=== PATIENT | male | born 1950 | race Caucasian/White ===

== ENCOUNTER → 2017-09-22 | Outpatient (CLI) | payer MEDICARE, OTHER ==
[~2017-09-22] MED LIST: DOXA4 PO; FEXPSEER PO
== END ==
LOC: PLD 13:27 → LAB SHORT 13:27
DX: D48.5 Neoplasm of uncertain behavior of skin (principal)
CPT/HCPCS: 88305

== ENCOUNTER 2019-11-15 12:37 | Inpatient (IN) | payer MEDICARE, OTHER ==
[~2019-11-15] VITALS: Ht 172.7 cm; Wt 72.3 kg
[2019-11-15] MEDS ORDERED: DOXA4 PO (12:52)
[2019-11-15] MEDS ORDERED: Aspirin EC81 MG PO (12:52)
[2019-11-15] MEDS ORDERED: Flovent Diskus50 MCG INH (12:53)
[2019-11-15] MEDS ORDERED: INCRUSE ELLI62.5 MCG INH (12:53)
[2019-11-15] MEDS ORDERED: LISI20 PO (12:54)
[2019-11-15] MEDS ORDERED: Duoneb 2.5-0.5 M3 ML NEB (12:54)
[2019-11-15] MEDS ORDERED: OMEP20ER PO (12:55)
[2019-11-15] MEDS ORDERED: PARO20 PO (12:55)
[2019-11-15 13:03] LABS: BASOPHILS ABSOLUTE AUTO 0.02 K/mm3 (0.00-0.23); BASOPHILS PERCENT AUTO 0 % (0-2); EOSINOPHILS ABSOLUTE AUTO 0.02 K/mm3 (0.00-0.68); EOSINOPHILS PERCENT AUTO 0 % (0-6); Hematocrit 36.7 % (37.0-53.0); Hemoglobin 13.3 g/dL (13.5-17.5); IMMATURE GRAN ABSOLUTE AUTO 0.04 K/mm3 (0.00-0.10); IMMATURE GRAN PERCENT AUTO 1 % (0-1); LYMPHOCYTES ABSOLUTE AUTO 1.05 K/mm3 (0.84-5.20); LYMPHOCYTES PERCENT AUTO 14 % (21-46); MONOCYTES ABSOLUTE AUTO 0.74 K/mm3 (0.16-1.47); MONOCYTES PERCENT AUTO 10 % (4-13); Mean Corpuscular HGB 36.3 pg (26.0-34.0); Mean Corpuscular HGB Conc 36.2 g/dL (31.5-36.5); Mean Corpuscular Volume 100 fL (80-100); Mean Platelet Volume 10.9 fL (9.1-12.4); NEUTROPHILS ABSOLUTE AUTO 5.52 K/mm3 (1.96-9.15); NEUTROPHILS PERCENT AUTO 75 % (41-73); Platelet Count 140 K/mm3 (150-400); RDW Coefficient Variation 13.7 % (11.7-14.2); RDW Standard Deviation 51.2 fL (35.1-46.3); Red Blood Cell Count 3.66 M/mm3 (4.30-5.90); White Blood Cell Count 7.39 K/mm3 (4.00-11.30)
[2019-11-15 13:20] LABS: Alanine Aminotransfer (ALT/SGP 26 U/L (12-78); Albumin, Blood 2.7 g/dL (3.4-5.0); Albumin/Globulin Ratio 0.7 (0.8-1.8); Alk Phos 58 U/L (50-136); Anion Gap 13 mmol/L (6-16); Aspartate Aminotrans (AST/SGOT 42 U/L (12-37); Bilirubin, Total 2.4 mg/dL (0.1-1.0); Blood Urea Nitrogen 21 mg/dL (8-24); Bun/Creatinine Ratio 24.8 (12.0-20.0); CO2, Blood 26 mmol/L (21-32); Chloride, Blood 86 mmol/L (98-108); Creatinine, Blood 0.85 mg/dL (0.60-1.20); Globulin, Blood 3.7 g/dL (2.2-4.0); Glomerular Filtration Rate >60 (60-); Glucose, Blood 95 mg/dL (70-99); Potassium, Blood 2.9 mmol/L (3.5-5.5); Sodium, Blood 125 mmol/L (136-145); Total Protein, Blood 6.4 g/dL (6.4-8.2); Troponin I <0.015 ng/mL (0.000-0.040)
[2019-11-15] MEDS ORDERED: HYDROCHLOROTH12.5 MG PO (15:19)
[2019-11-15] MEDS ORDERED: Doxazosin Mesyla4 MG PO (15:20)
--- NOTE | 2019-11-15 16:22 | NUR ---
Echocardiogram completed.
[2019-11-15 16:39] LABS: International Normalized Ratio 1.04; Prothrombin Time Results 11.1 Sec (9.7-11.5)
--- NOTE | 2019-11-15 17:37 | NUR ---
DR VELAZQUEZ CALLED RE NEW ADMIT. PT STATES HE NEEDS HIS COPD MEDS. PT IS ON CARDIZEM GTT AT 2.5 AND VS NOTED. PT DENIES PAIN OR SOB CURRENTLY. LUNGS ARE QUITE DIMINISHED TO BUT IS ON RA WITH SATS NOTED. PT INDICATES DAILY ETOH USE W/O EVIDENCE OF DIFFICULTY BREATHNING. PT HR APPROX 95-130 ON EARLY ADMIT WITH CARDIZEM GTT AT 2.5MG AND WILL FOLLOW.
--- NOTE | 2019-11-15 19:00 | NUR ---
ASSUMED CARE NOTE: ASSUMED CARE OF PT @ 1900, RECEVIED REPORT FROM RUI MOREL. PT IS ALERT AND ORIENTEDX3. PT IS ON RA WITH SPO2 ABOVE 90% PT IS DIM T/O. PT DENIES ANY SOB AT THIS TIME. PT IS IN A FIB WITH HR BETWEEN 90-120. VITALS STABLE. PT DENIES ANY CP AT THIS TIME. PT IS ON CARDIZEM @ 2.5MG/HR. ACTIVE BOWEL TONES IN ALL FOUR QUADRANTS. PT USES URINAL AT BEDSIDE, WILL CONTINUE TO MONITOR PT T/O SHIFT
--- NOTE | 2019-11-15 19:41 | NUR ---
CALLED TO ENSURE THAT CARDIZEM WAS TURNED OFF. CARDIZEM IS NOW DISCONTINUED. DR. MEZA CALLED AND STATED TO CALL FOR CARDIO CONSULT IN THE AM.
[2019-11-16 03:27] LABS: BASOPHILS ABSOLUTE AUTO 0.01 K/mm3 (0.00-0.23); BASOPHILS PERCENT AUTO 0 % (0-2); EOSINOPHILS ABSOLUTE AUTO 0.01 K/mm3 (0.00-0.68); EOSINOPHILS PERCENT AUTO 0 % (0-6); Hematocrit 31.4 % (37.0-53.0); Hemoglobin 11.6 g/dL (13.5-17.5); IMMATURE GRAN ABSOLUTE AUTO 0.03 K/mm3 (0.00-0.10); IMMATURE GRAN PERCENT AUTO 1 % (0-1); LYMPHOCYTES ABSOLUTE AUTO 0.41 K/mm3 (0.84-5.20); LYMPHOCYTES PERCENT AUTO 7 % (21-46); MONOCYTES ABSOLUTE AUTO 0.57 K/mm3 (0.16-1.47); MONOCYTES PERCENT AUTO 9 % (4-13); Mean Corpuscular HGB 36.7 pg (26.0-34.0); Mean Corpuscular HGB Conc 36.9 g/dL (31.5-36.5); Mean Corpuscular Volume 99 fL (80-100); Mean Platelet Volume 10.5 fL (9.1-12.4); NEUTROPHILS ABSOLUTE AUTO 5.23 K/mm3 (1.96-9.15); NEUTROPHILS PERCENT AUTO 84 % (41-73); Platelet Count 122 K/mm3 (150-400); RDW Coefficient Variation 13.8 % (11.7-14.2); RDW Standard Deviation 50.8 fL (35.1-46.3); Red Blood Cell Count 3.16 M/mm3 (4.30-5.90); White Blood Cell Count 6.26 K/mm3 (4.00-11.30)
[2019-11-16 03:46] LABS: Alanine Aminotransfer (ALT/SGP 22 U/L (12-78); Albumin, Blood 2.2 g/dL (3.4-5.0); Albumin/Globulin Ratio 0.7 (0.8-1.8); Alk Phos 54 U/L (50-136); Anion Gap 11 mmol/L (6-16); Aspartate Aminotrans (AST/SGOT 45 U/L (12-37); Bilirubin, Total 1.9 mg/dL (0.1-1.0); Blood Urea Nitrogen 17 mg/dL (8-24); Bun/Creatinine Ratio 23.7 (12.0-20.0); CHOL/HDL RATIO 9.5; CO2, Blood 23 mmol/L (21-32); Calcium, Blood 7.8 mg/dL (8.5-10.1); Chloride, Blood 95 mmol/L (98-108); Cholesterol 95 mg/dL (50-200); Creatinine, Blood 0.72 mg/dL (0.60-1.20); Glomerular Filtration Rate >60 (60-); Glucose, Blood 93 mg/dL (70-99); HDL Cholesterol 10 mg/dL (>39); LDL/HDL RATIO 5.7; Low Density Lipoprotein Chol 57 mg/dL (0-110); Potassium, Blood 3.6 mmol/L (3.5-5.5); Sodium, Blood 129 mmol/L (136-145); Total Protein, Blood 5.2 g/dL (6.4-8.2); Triglycerides 138 mg/dL (30-160); Very Low Density Lipoprot Chol 27 mg/dL (6-32)
--- NOTE | 2019-11-16 06:46 | NUR ---
SHIFT SUMMARY: SEE PREVIOUS NOTE. NO MAJOR CHANGES DURING SHIFT. CARDIZEM DRIP HAS REMAINED OFF ORDERED PER . PT IS ON RA WITH SPO2 ABOVE 90%. PT HAS SLEPT FOR THE MAJORITY OF THE SHIFT. PT IS IN AFIB WITH HR BETWEEN 80-100. MARTHA STOP BY THIS MORNING TO ASSESS PT, NO CHANGES WERE MADE. PT HAS BEEN USING URINAL AT BEDSIDE. BE AT LOWEST LEVEL, MOISES CONTINUE TO MONITOR PT UNTIL REPORT IS GIVEN TO ONCOMING SHIFT.
--- NOTE | 2019-11-16 08:06 | NUR ---
PT AWAKE AND CALM. VS NOTED AND SL SOFT, WILL FOLLOW FOR AM MEDS ADMINISTRATION. IVF NS TKO. URINE DARK AND ENCOURAGED PO INTAKE. REMAINS A-FIB. DENIES PAIN OR AM DISTRES. SETTING UP EATING.
--- NOTE | 2019-11-16 15:57 | NUR ---
PT CONT. TO HAVE INTERMITENT AGITATION/RESTLESSNESS. REMAINS ON PRECEDEX GTT AND ATIVAN X2 THUS FAR THIS SHIFT. PT IS YET RESTRAINED AND TOLERATING WELL.
--- NOTE | 2019-11-16 16:03 | NUR ---
PT HAS BEEN SLEEPING MOST OF SHIFT. BP HAVE BEEN SOFT BUT READINGS ARE LOWER WHEN PT HAS R ARM BENT AND SLEEPING. DENIES PAIN OR DISTRESS.
--- NOTE | 2019-11-16 18:20 | NUR ---
PT STABLE, VS NOTED, I/O NOTED. NO CHANGE IN PAIN, RESP STATUS AND PT REMAINS IN A-FIB WITH RATE SOMEWHAT CONTROLLED NOTED.
--- NOTE | 2019-11-16 20:30 | NUR ---
PATIENT AWAKE, LAYING IN BED. SELF CARE TO OWN NEEDS. DENIES NO CHEST PAIN, SOB. HR IRREGULAR 100'S, A-FIB. BP STABLE. 02 2L/NC IN PLACE WITH SATS >90%. OCCASIONAL PRODUCTIVE COUGH WITH CLEAR SPUTUM PER PATIENT. MODERATE APPETITE NOTED FOR DINNER. TAKES PO INTAKE WELL. PO MED GIVEN WITHOUT ANY DIFFICULTY. MOVES ALL EXT'S WELL. X2 SALINE LOCKS PATENT. CONTINUE TO MONITOR AND TX PRN.
[2019-11-17 04:05] LABS: Alanine Aminotransfer (ALT/SGP 27 U/L (12-78); Albumin, Blood 2.1 g/dL (3.4-5.0); Albumin/Globulin Ratio 0.6 (0.8-1.8); Alk Phos 60 U/L (50-136); Anion Gap 8 mmol/L (6-16); Aspartate Aminotrans (AST/SGOT 75 U/L (12-37); Bilirubin, Total 1.7 mg/dL (0.1-1.0); Blood Urea Nitrogen 9 mg/dL (8-24); Bun/Creatinine Ratio 13.7 (12.0-20.0); CO2, Blood 25 mmol/L (21-32); Calcium, Blood 7.7 mg/dL (8.5-10.1); Chloride, Blood 97 mmol/L (98-108); Creatinine, Blood 0.66 mg/dL (0.60-1.20); Globulin, Blood 3.3 g/dL (2.2-4.0); Glomerular Filtration Rate >60 (60-); Glucose, Blood 99 mg/dL (70-99); Potassium, Blood 3.1 mmol/L (3.5-5.5); Sodium, Blood 130 mmol/L (136-145); Total Protein, Blood 5.4 g/dL (6.4-8.2)
--- NOTE | 2019-11-17 05:24 | NUR ---
SHIFT SUMMARY PT REMAINED STABLE T/O SHIFT. DENIED ANY CP OR SOB. RHYTHM A-FIB WITH HR 90-100'S. O2 2L/NC IN PLACE DUE TO HX SLEEP APNEA, SATS >90%. LUNGS CLEAR WITH OCCASIONAL PRODUCTIVE CLEAR SPUTUM PER PATIENT. USES URINAL AT BEDSIDE, DANIEL COLOR URINE. RASH TO BUTTOCK GONE, BUT LOTRIMIN CREAM APPLIED BY PATIENT. INDEPENDENT OF SELF CARE NEEDS. NO OTHER CHANGES NOTED, WILL REPORT OFF TO NOC SHIFT.
--- NOTE | 2019-11-17 08:00 | NUR ---
[place] of Care: Care assumed at 0700hr. Patient a/o x4, sitting upright in bed watching T.V. Denies pain, discomfort, SOB, or dyspnea. VSS, spO2-95-97% on RA. Heart rate/rhythm shows A-fibb- 110-120's, BP stable. Patient dangles at bedside to use urinal without difficulty. Tolerated PO fluids, breakfast, and pills whole without difficulty. Peripheral IV to lt wrist patent and intact. Plan to discuss PO potassium replacement and possible status change with physician this morning. Call light in reach, makes, needs known. Will continue to monitor for pain, safety, comfort.
--- NOTE | 2019-11-17 18:28 | NUR ---
Shift Summary: No significant changes throughout shift. VS remains stable, heart rate/rhythm remains in A-fibb, rate decreased to 90's-low 100's, occasionally increased to 120. Continues to deny pain, discomfort, SOB, or dyspnea. Calm and cooperative with staff, but needed reminders to not get out of bed without assistance. Steady on his feet when out of bed. Ate approx 50% of meals today, tolerated without difficulty. Received orders per Dr. Phillips this morning for K-Dur, PO BID, and to change patient to medical status with telemetry. Call light in reach, makes needs known. Will continue to monitor until report to day shift RN.
--- NOTE | 2019-11-17 20:45 | NUR ---
PATIENT RESTING IN BED. A&OX4. DENIES CHEST PAIN OR SOB. CONTROLLED HR 100'S, A-FIB. LUNGS CLEAR DECREASE BASES, ROOM AIR. OCCASIONAL PRODUCTIVE COUGH PER PATIENT, CLEAR SPUTUM. TAKES PO MEDS WELL. USES URINAL AT BEDSIDE. MOVES ALL EXT'S WELL. SELF CARE TO HIS OWN NEEDS. CALL LIGHT IN REACH. CONTINUE TO MONITOR AND TX PRN.
--- NOTE | 2019-11-18 04:18 | NUR ---
INCREASE RESTLESSNESS T/O SHIFT. UP TO TOILET AND ATTEMPTED TO WALK OUT OF ROOM AT TIMES ASKING ABOUT WANTING TO GO HOME. RE-DIRECTS WELL, BUT SOME CONFUSION NOTED. ATIVAN 1MG IVP GIVEN FOR ANXIETY. CONTINUE TO MONITOR. VSS.
--- NOTE | 2019-11-18 05:16 | NUR ---
SHIFT SUMMARY START OF SHIFT A&OX4, BUT NIGHT WENT ON INCREASE BECAME CONFUSED AND AXIOUS NOTED; REDIRECTS WELL. ATIVAN 1MG IVP GIVEN. RESTLESSNESS IN BED AND SKIN TEARS TO BOTH ELBOW AREAS. LEFT ELBOW PLACED BANDAID AND RIGHT ELBOW CLEANSE WITH TAP WATER AND PLACE MEPLIEX DRESSING. BED ALARM TURNED ON AND EDUCATED PT THE REASON FOR IT. BED LIGHT IN REACH. HAVE NOTED SOME UNSTEADINESS ON FEET. VSS T/O. WAS USING TOILET ON OWN BUT HAVE EDUCATED TO USE URINAL AT BEDSIDE. NO OTHER CHANGES NOTED. WILL REPORT OFF TO DAY SHIFT.
[2019-11-18 11:14] LABS: Anion Gap 6 mmol/L (6-16); Blood Urea Nitrogen 6 mg/dL (8-24); Bun/Creatinine Ratio 9.9 (12.0-20.0); CO2, Blood 22 mmol/L (21-32); Calcium, Blood 8.2 mg/dL (8.5-10.1); Chloride, Blood 99 mmol/L (98-108); Creatinine, Blood 0.61 mg/dL (0.60-1.20); Glomerular Filtration Rate >60 (60-); Glucose, Blood 101 mg/dL (70-99); Potassium, Blood 3.7 mmol/L (3.5-5.5); Sodium, Blood 127 mmol/L (136-145)
[2019-11-18] MEDS ORDERED: FOLI1 PO (13:56)
[2019-11-18] MEDS ORDERED: LOSA25 PO (13:57)
[2019-11-18] MEDS ORDERED: METO25ER PO (13:58)
[2019-11-18] MEDS ORDERED: XARELTO20 MG PO (13:59)
[2019-11-18] MEDS ORDERED: B-1100 M1 PO (14:00)
--- NOTE | 2019-11-18 14:49 | NUR ---
Discharge: received discharge orders/instructions from Dr. Phillips at approx 1300hr. Medications and instructions reviewed with patient, who verablized understanding. Discharge medications called to [facility]. Peripheral IV D/C'd. Belongings sent with patient. Patient disharged to home via his friend, who gave him a ride home at 1440hr. Belongings sent home with patient.
== END 2019-11-18 14:40 | disposition home or self-care (01) | DRG 193 ==
LOC: ER 12:37 → ICUW 12:38 → ER 12:42 → ICUE 16:16
PROVIDERS: Emergency Medicine; ADMIT Internal Medicine
PROC: 8E0ZXY6 Isolation (ICD-10-PCS; principal; 2019-11-15)
DX: J18.9 Pneumonia, unspecified organism (principal); I50.41 Acute combined systolic (congestive) and diastolic (congestive) heart failure; E87.1 Hypo-osmolality and hyponatremia; J44.0 Chronic obstructive pulmonary disease with (acute) lower respiratory infection; E87.2 Acidosis; I42.8 Other cardiomyopathies; I48.91 Unspecified atrial fibrillation; I11.0 Hypertensive heart disease with heart failure; E87.6 Hypokalemia; G47.33 Obstructive sleep apnea (adult) (pediatric); K21.9 Gastro-esophageal reflux disease without esophagitis; F10.20 Alcohol dependence, uncomplicated; F41.9 Anxiety disorder, unspecified; F17.200 Nicotine dependence, unspecified, uncomplicated; Z91.14 Patient's other noncompliance with medication regimen; Z79.82 Long term (current) use of aspirin; Z79.51 Long term (current) use of inhaled steroids
CPT/HCPCS: 36415; 71045; 80048; 80053; 80061; 82728; 83605; 83615; 83880; 84145; 84484; 85025; 85610; 85730; 86140; 87040; 93005; 93010; 93306; 94640; 94760; 96361; 96365-59; 96367; 96376; 97165; 99285-25; A9270-GY; J0696; J1650; J2060; J3480; J7030; U0002

== ENCOUNTER 2020-01-20 11:43 | Emergency (ER) | payer MEDICARE, OTHER ==
[~2020-01-20] VITALS: Ht 172.7 cm; Wt 70.3 kg
[~2020-01-20 11:43] MED LIST changes: +Aspirin EC81 MG PO; +B-1100 M1 PO; +Doxazosin Mesyla4 MG PO; +Duoneb 2.5-0.5 M3 ML NEB; +FOLI1 PO; +Flovent Diskus50 MCG INH; +HYDROCHLOROTH12.5 MG PO; +INCRUSE ELLI62.5 MCG INH; +LISI20 PO; +LOSA25 PO; +METO25ER PO; +OMEP20ER PO; +PARO20 PO; +XARELTO20 MG PO
[2020-01-20 12:13] LABS: BASOPHILS PERCENT AUTO 0 % (0-2); EOSINOPHILS PERCENT AUTO 0 % (0-6); Hematocrit 29.4 % (37.0-53.0); Hemoglobin 10.1 g/dL (13.5-17.5); IMMATURE GRAN ABSOLUTE AUTO 0.02 K/mm3 (0.00-0.10); IMMATURE GRAN PERCENT AUTO 1 % (0-1); LYMPHOCYTES ABSOLUTE AUTO 0.36 K/mm3 (0.84-5.20); LYMPHOCYTES PERCENT AUTO 8 % (21-46); MONOCYTES ABSOLUTE AUTO 0.08 K/mm3 (0.16-1.47); MONOCYTES PERCENT AUTO 2 % (4-13); Mean Corpuscular HGB 36.7 pg (26.0-34.0); Mean Corpuscular HGB Conc 34.4 g/dL (31.5-36.5); Mean Corpuscular Volume 107 fL (80-100); Mean Platelet Volume 9.8 fL (9.1-12.4); NEUTROPHILS ABSOLUTE AUTO 3.82 K/mm3 (1.96-9.15); NEUTROPHILS PERCENT AUTO 89 % (41-73); Platelet Count 193 K/mm3 (150-400); RDW Coefficient Variation 13.6 % (11.7-14.2); RDW Standard Deviation 53.5 fL (35.1-46.3); Red Blood Cell Count 2.75 M/mm3 (4.30-5.90); White Blood Cell Count 4.28 K/mm3 (4.00-11.30)
[2020-01-20 12:20] LABS: International Normalized Ratio 1.02; Prothrombin Time Results 10.9 Sec (9.7-11.5)
[2020-01-20 12:29] LABS: Anion Gap 19 mmol/L (6-16); Blood Urea Nitrogen 14 mg/dL (8-24); Bun/Creatinine Ratio 15.9 (12.0-20.0); CO2, Blood 19 mmol/L (21-32); Calcium, Blood 8.6 mg/dL (8.5-10.1); Chloride, Blood 86 mmol/L (98-108); Creatinine, Blood 0.88 mg/dL (0.60-1.20); Glomerular Filtration Rate >60 (60-); Glucose, Blood 86 mg/dL (70-99); Potassium, Blood 3.6 mmol/L (3.5-5.5); Sodium, Blood 124 mmol/L (136-145)
[2020-01-20 13:38] LABS: Magnesium, Blood 1.2 mg/dL (1.6-2.4)
[2020-01-20] MEDS ORDERED: ONDA4ODT MM (16:16)
[2020-01-20] MEDS ORDERED: Norco 5-325 Ta1 EACH PO (16:16)
[2020-01-20] MEDS ORDERED: MAGOXI400 PO (16:19)
== END 2020-01-20 16:47 | disposition home or self-care (01) ==
LOC: ER 11:43
PROVIDERS: Emergency Medicine
DX: S42.032A Displaced fracture of lateral end of left clavicle, initial encounter for closed fracture (principal); S51.012A Laceration without foreign body of left elbow, initial encounter; S01.112A Laceration without foreign body of left eyelid and periocular area, initial encounter; I48.91 Unspecified atrial fibrillation; E87.1 Hypo-osmolality and hyponatremia; E83.42 Hypomagnesemia; E87.8 Other disorders of electrolyte and fluid balance, not elsewhere classified; Z88.5 Allergy status to narcotic agent; Z79.899 Other long term (current) drug therapy; Z79.82 Long term (current) use of aspirin; G47.30 Sleep apnea, unspecified; Z99.89 Dependence on other enabling machines and devices; I11.0 Hypertensive heart disease with heart failure; I50.9 Heart failure, unspecified; K21.9 Gastro-esophageal reflux disease without esophagitis; J44.9 Chronic obstructive pulmonary disease, unspecified; F41.9 Anxiety disorder, unspecified; F17.210 Nicotine dependence, cigarettes, uncomplicated; F10.20 Alcohol dependence, uncomplicated; W19.XXXA Unspecified fall, initial encounter
CPT/HCPCS: 29105; 36415; 70450; 72125; 73030; 80048; 82010; 83605; 83735; 84145; 85025; 85610; 90471; 90714; 93005; 93010; 96361-59; 96365-59; 96375-59; 96376-59; 99284-25; A9270-GY; G0480; J1885; J2405; J3010; J3475; J7030

== ENCOUNTER 2020-04-10 10:28 | Inpatient (IN) | payer MEDICARE, OTHER ==
[~2020-04-10] VITALS: Ht 172.7 cm; Wt 66.2 kg
[~2020-04-10 10:28] MED LIST changes: +MAGOXI400 PO; +Norco 5-325 Ta1 EACH PO; +ONDA4ODT MM
[2020-04-10 10:59] LABS: BASOPHILS ABSOLUTE AUTO 0.01 K/mm3 (0.00-0.23); BASOPHILS PERCENT AUTO 0 % (0-2); EOSINOPHILS PERCENT AUTO 0 % (0-6); Hematocrit 24.8 % (37.0-53.0); Hemoglobin 8.4 g/dL (13.5-17.5); IMMATURE GRAN ABSOLUTE AUTO 0.02 K/mm3 (0.00-0.10); IMMATURE GRAN PERCENT AUTO 0 % (0-1); LYMPHOCYTES PERCENT AUTO 10 % (21-46); MONOCYTES ABSOLUTE AUTO 0.73 K/mm3 (0.16-1.47); MONOCYTES PERCENT AUTO 9 % (4-13); Mean Corpuscular HGB 36.4 pg (26.0-34.0); Mean Corpuscular HGB Conc 33.9 g/dL (31.5-36.5); Mean Corpuscular Volume 107 fL (80-100); Mean Platelet Volume 10.7 fL (9.1-12.4); NEUTROPHILS ABSOLUTE AUTO 6.43 K/mm3 (1.96-9.15); NEUTROPHILS PERCENT AUTO 81 % (41-73); Platelet Count 206 K/mm3 (150-400); RDW Coefficient Variation 15.2 % (11.7-14.2); RDW Standard Deviation 60.3 fL (35.1-46.3); Red Blood Cell Count 2.31 M/mm3 (4.30-5.90); White Blood Cell Count 7.99 K/mm3 (4.00-11.30)
[2020-04-10 11:18] LABS: Alanine Aminotransfer (ALT/SGP 41 U/L (12-78); Albumin, Blood 2.7 g/dL (3.4-5.0); Alk Phos 62 U/L (50-136); Anion Gap 21 mmol/L (6-16); Aspartate Aminotrans (AST/SGOT 123 U/L (12-37); Bilirubin, Total 1.4 mg/dL (0.1-1.0); Blood Urea Nitrogen 13 mg/dL (8-24); Bun/Creatinine Ratio 13.7 (12.0-20.0); CO2, Blood 14 mmol/L (21-32); Calcium, Blood 7.9 mg/dL (8.5-10.1); Chloride, Blood 93 mmol/L (98-108); Creatinine, Blood 0.95 mg/dL (0.60-1.20); Ethanol (Alcohol), Blood, Med <3 mg/dL; Globulin, Blood 2.8 g/dL (2.2-4.0); Glomerular Filtration Rate >60 (60-); Glucose, Blood 149 mg/dL (70-99); Potassium, Blood 3.1 mmol/L (3.5-5.5); Sodium, Blood 128 mmol/L (136-145); Total Protein, Blood 5.5 g/dL (6.4-8.2); Troponin I <0.015 ng/mL (0.000-0.040)
[2020-04-10 11:50] LABS: Magnesium, Blood 1.6 mg/dL (1.6-2.4); Phosphorus, Blood 5.2 mg/dL (2.5-4.9)
[2020-04-10 12:10] LABS: Base Excess Venous -11.9 mmol/L; Bicarbonate Venous 15.3 mmol/L (24.0-30.0); PCO2 Venous 33.9 mmHg (38-42); PO2 Venous 41.1 mmHg (38-42); pH Blood Venous 7.26 (7.34-7.37)
[2020-04-10 16:23] LABS: BASOPHILS ABSOLUTE AUTO 0.01 K/mm3 (0.00-0.23); BASOPHILS PERCENT AUTO 0 % (0-2); EOSINOPHILS PERCENT AUTO 0 % (0-6); Hematocrit 21.2 % (37.0-53.0); Hemoglobin 7.3 g/dL (13.5-17.5); Mean Corpuscular HGB 35.8 pg (26.0-34.0); Mean Corpuscular HGB Conc 34.4 g/dL (31.5-36.5); Mean Corpuscular Volume 104 fL (80-100); Mean Platelet Volume 10.8 fL (9.1-12.4); Platelet Count 122 K/mm3 (150-400); RDW Coefficient Variation 15.1 % (11.7-14.2); RDW Standard Deviation 57.1 fL (35.1-46.3); Red Blood Cell Count 2.04 M/mm3 (4.30-5.90); White Blood Cell Count 3.72 K/mm3 (4.00-11.30)
[2020-04-10 16:31] LABS: IMMATURE GRAN ABSOLUTE AUTO 0.02 K/mm3 (0.00-0.10); IMMATURE GRAN PERCENT AUTO 1 % (0-1); LYMPHOCYTES ABSOLUTE AUTO 0.18 K/mm3 (0.84-5.20); LYMPHOCYTES PERCENT AUTO 5 % (21-46); MONOCYTES ABSOLUTE AUTO 0.43 K/mm3 (0.16-1.47); MONOCYTES PERCENT AUTO 12 % (4-13); NEUTROPHILS ABSOLUTE AUTO 3.08 K/mm3 (1.96-9.15); NEUTROPHILS PERCENT AUTO 83 % (41-73)
--- NOTE | 2020-04-10 18:25 | NUR ---
SHIFT SUMMARY NO ACUTE CHANGES SINCE ADMIT. PATIENT IS ALERT AND ORIENTED ABLE TO MAKE HIS NEEDS KNOWN. BED LOW AND LOCKED, CALL LIGHT WITHIN REACH. HE IS ON BEDREST AND CLEAR LIQUID DIET. WILL CONT TO MONITOR AND REPORT OFF TO OUTSOLE BEVELER.
[2020-04-10 20:34] LABS: Hematocrit 19.3 % (37.0-53.0); Hemoglobin 6.9 g/dL (13.5-17.5)
[2020-04-11 02:28] LABS: Alanine Aminotransfer (ALT/SGP 23 U/L (12-78); Albumin, Blood 2.1 g/dL (3.4-5.0); Albumin/Globulin Ratio 0.8 (0.8-1.8); Alk Phos 47 U/L (50-136); Anion Gap 8 mmol/L (6-16); Aspartate Aminotrans (AST/SGOT 56 U/L (12-37); Bilirubin, Total 1.7 mg/dL (0.1-1.0); Blood Urea Nitrogen 15 mg/dL (8-24); Bun/Creatinine Ratio 16.7 (12.0-20.0); CO2, Blood 25 mmol/L (21-32); Calcium, Blood 7.6 mg/dL (8.5-10.1); Chloride, Blood 97 mmol/L (98-108); Globulin, Blood 2.6 g/dL (2.2-4.0); Glomerular Filtration Rate >60 (60-); Glucose, Blood 91 mg/dL (70-99); Magnesium, Blood 1.5 mg/dL (1.6-2.4); Phosphorus, Blood 3.5 mg/dL (2.5-4.9); Potassium, Blood 2.8 mmol/L (3.5-5.5); Sodium, Blood 130 mmol/L (136-145); Total Protein, Blood 4.7 g/dL (6.4-8.2)
[2020-04-11 02:31] LABS: Hematocrit 21.9 % (37.0-53.0); Hemoglobin 7.8 g/dL (13.5-17.5); Mean Corpuscular HGB 35.8 pg (26.0-34.0); Mean Corpuscular HGB Conc 35.6 g/dL (31.5-36.5); Mean Corpuscular Volume 101 fL (80-100); Mean Platelet Volume 11.2 fL (9.1-12.4); Platelet Count 107 K/mm3 (150-400); RDW Coefficient Variation 17.2 % (11.7-14.2); RDW Standard Deviation 63.7 fL (35.1-46.3); Red Blood Cell Count 2.18 M/mm3 (4.30-5.90)
[2020-04-11 03:20] LABS: BAND PERCENT MAN 3 % (0-8); BASOPHILS PERCENT MAN 0 % (0-2); EOSINOPHILS PERCENT MAN 0 % (0-6); LYMPHOCYTES ABSOLUTE MAN 0.44 K/mm3 (0.84-5.20); LYMPHOCYTES PERCENT MAN 12 % (21-46); MONOCYTES ABSOLUTE MAN 0.29 K/mm3 (0.16-1.47); MONOCYTES PERCENT MAN 8 % (4-13); NEUTROPHILS ABSOLUTE MAN 2.96 K/mm3 (1.96-9.15); SEG NEUTROPHILS PERCENT MAN 77 % (41-73); TOTAL CELLS COUNTED 100
--- NOTE | 2020-04-11 05:58 | NUR ---
SHIFT SUMMARY: PATIENT BLADDER >750ML FLUID PER BLADDER SCAN, i AND O CATH COMPLETED WITH >900ML OUT. PATIENT SLIGHTLY JAUNDICED BUT ALERT AND ORIENTED THIS SHIFT. 1 UNIT PRBC'S GIVEN WITH MARKED IMPROVEMENT IN H&H, NO OTHER ISSUES NOTED.
[2020-04-11 07:12] LABS: Source, Urine Clean Catch
[2020-04-11 07:28] LABS: Bilirubin, Urine Neg (Neg); Blood, Urine Neg (Neg); Glucose Qualitative, Urine Neg (Neg); Ketones, Urine Neg (Neg); Leukocyte Esterase, Urine Neg (Neg); Nitrite, Urine Neg (Neg); Protein, Urine Neg (Neg); Urobilinogen, Urine 1+ (Normal)
[2020-04-11 07:35] LABS: Appearance, Urine Clear (Clear); Color, Urine Yellow (P-Yellow)
[2020-04-11 08:28] LABS: Hematocrit 21.8 % (37.0-53.0); Hemoglobin 7.6 g/dL (13.5-17.5)
[2020-04-11 17:06] LABS: Source, Urine Catheter
[2020-04-11 17:11] LABS: Appearance, Urine Clear (Clear); Bilirubin, Urine Neg (Neg); Blood, Urine 1+ (Neg); Color, Urine Yellow (P-Yellow); Glucose Qualitative, Urine Neg (Neg); Ketones, Urine Neg (Neg); Leukocyte Esterase, Urine Neg (Neg); Nitrite, Urine Neg (Neg); Protein, Urine Neg (Neg); Urobilinogen, Urine 1+ (Normal)
[2020-04-11 17:39] LABS: Bacteria Few /hpf; Squamous Epithelial Cells Rare /hpf (Few)
[2020-04-11 17:40] LABS: Hyaline Casts 0-2 /lpf (0-2)
--- NOTE | 2020-04-11 17:43 | NUR ---
SHIFT SUMMARY PT A&Ox3; INTERMITTENT CONFUSION AND FORGETFULNESS. PT RESTING IN BED DURING SHIFT APPEARS TO BE SLEEPING FOR MAJORITY OF SHIFT. PT DENIES PAIN, CHEST PAIN/PRESSURE, SOB, NAUSEA, DIZZINESS AND NUMB/TINGLING. PT RECEIVING IV ANTIBIOTICS; MAG/POTASSIUM AND HEPARIN GTT DURING SHIFT. DR FRAZIER TO ROOM; NEW ORDERS FOR DAILY DRESSING CHANGES. PT BLADDER SCAN 427; NOTIFIED DR MARTINEZ; NEW ORDER FOR PATIÑO CATHETER AND FLOMAX; PT REFUSING CATHETER STATING HE WANTS TO ATTEMPT TO VOID AGAIN. PT CONTINUES TO BE UNABLE TO VOID, BLADDER SCAN >500CC; PT EDUCATED AND PATIÑO CATHETER PLACED. VSS. NO OTHER ACUTE CHANGES NOTED DURING SHIFT. WILL CONTINUE TO MONITOR UNTIL REPORT GIVEN TO ONCOMING RN.
--- NOTE | 2020-04-11 21:35 | NUR ---
HEPARIN PLACED ON HOLD FOR ONE HOUR; REDRAW APTT FOR CRITICALLY HIGH APTT >139
--- NOTE | 2020-04-11 22:03 | NUR ---
PHARMACIST KEIRA CALLED TO STATE AFTER APTT IS DRAWN TO RESTART HEPARIN AT 13 U/KG/HR.
--- NOTE | 2020-04-11 23:01 | NUR ---
ASSUMED CARE OF PATIENT AT APPROXIMATELY 1910 FROM TANNER Figueroa RN. PATIENT ALERT AND ORIENTED TO SELF, AND FOLLOWING DIRECTIONS; CIWA 3. PATIENT WEAK; REPORTS HE MOVES HIMSELF IN BED; Q2H TURNS. PATIENT DENIES PAIN, NUMBENSS, TINGLING, DIZZINESS AND NAUSEA. PATIENT REPORTS LEFT LEG FEELS BETTER; NOT TENDER. AFIB W/ PVC'S ON TELE; OXYGEN SATURATION ABOVE 90% ON ROOM AIR. HEPARIN GTT; BANANA BAG GTT; HEPARIN RESTARTED AT 13U/KG/HR PER PHARMACIST KEIRA. URINARY CATH PATENT. PATIENT CURRENTLY RESTING IN BED; CALL LIGHT IN REACH; BED IN LOWEST POSISTION; BED ALARM ON; WILL CONTINUE TO MONITOR AND ASSESS UNTIL END OF SHIFT.
[2020-04-12 05:31] LABS: BASOPHILS PERCENT AUTO 0 % (0-2); EOSINOPHILS ABSOLUTE AUTO 0.02 K/mm3 (0.00-0.68); EOSINOPHILS PERCENT AUTO 0 % (0-6); Hematocrit 18.3 % (37.0-53.0); Hemoglobin 6.5 g/dL (13.5-17.5); IMMATURE GRAN ABSOLUTE AUTO 0.04 K/mm3 (0.00-0.10); IMMATURE GRAN PERCENT AUTO 1 % (0-1); LYMPHOCYTES ABSOLUTE AUTO 0.88 K/mm3 (0.84-5.20); LYMPHOCYTES PERCENT AUTO 19 % (21-46); MONOCYTES ABSOLUTE AUTO 0.38 K/mm3 (0.16-1.47); MONOCYTES PERCENT AUTO 8 % (4-13); Mean Corpuscular HGB 36.1 pg (26.0-34.0); Mean Corpuscular HGB Conc 35.5 g/dL (31.5-36.5); Mean Corpuscular Volume 102 fL (80-100); Mean Platelet Volume 10.4 fL (9.1-12.4); NEUTROPHILS ABSOLUTE AUTO 3.22 K/mm3 (1.96-9.15); NEUTROPHILS PERCENT AUTO 71 % (41-73); Platelet Count 108 K/mm3 (150-400); RDW Coefficient Variation 17.8 % (11.7-14.2); RDW Standard Deviation 66.1 fL (35.1-46.3); RETICULOCYTE COUNT PERCENT 0.32 % (0.50-2.50); White Blood Cell Count 4.54 K/mm3 (4.00-11.30)
[2020-04-12 06:01] LABS: Percent Saturation 11.6 % (20.0-50.0)
--- NOTE | 2020-04-12 06:16 | NUR ---
CALLED DR. MCLEAN TO REPORT DROP IN HEMOGLOBIN TO 6.5; ORDER FOR ONE UNIT RBC; PATIENT ON HEPARIN GTT; ORDER TO CONTINUE IF NOT OPEN BLEEDING. WILL CONTINUE TO MONITOR AND ASSESS UNTIL END OF SHIFT. CALLED FARHANA CROCKETT TO REPORT CRITICALLY HIGH APTT OF 105; WILL TITRATE DRIP DOWN.
[2020-04-12 06:24] LABS: Alanine Aminotransfer (ALT/SGP 15 U/L (12-78); Albumin, Blood 1.6 g/dL (3.4-5.0); Albumin/Globulin Ratio 0.6 (0.8-1.8); Alk Phos 44 U/L (50-136); Anion Gap 8 mmol/L (6-16); Aspartate Aminotrans (AST/SGOT 40 U/L (12-37); Bilirubin, Total 0.6 mg/dL (0.1-1.0); Blood Urea Nitrogen 11 mg/dL (8-24); Bun/Creatinine Ratio 14.1 (12.0-20.0); CO2, Blood 23 mmol/L (21-32); Calcium, Blood 7.2 mg/dL (8.5-10.1); Chloride, Blood 103 mmol/L (98-108); Creatinine, Blood 0.78 mg/dL (0.60-1.20); Globulin, Blood 2.5 g/dL (2.2-4.0); Glomerular Filtration Rate >60 (60-); Glucose, Blood 89 mg/dL (70-99); Magnesium, Blood 1.9 mg/dL (1.6-2.4); Phosphorus, Blood 2.3 mg/dL (2.5-4.9); Potassium, Blood 3.1 mmol/L (3.5-5.5); Sodium, Blood 134 mmol/L (136-145); Total Protein, Blood 4.1 g/dL (6.4-8.2)
--- NOTE | 2020-04-12 06:59 | NUR ---
THIS RN STAYED IN ROOM FIRST 15 MINUTES OF TRANSFUSION; NO S/S OF REACTION NOTED. WILL CONTINUE TO MONITOR AND ASSESS UNTIL END OF SHIFT. VSS.
[2020-04-12 11:12] LABS: Vancomycin, Trough 12.3 ug/mL (5.0-10.0)
--- NOTE | 2020-04-12 15:26 | NUR ---
CALLED DR LEON TO CLARIFY FOR ORDERS FOR POTASSIUM 10 MEQ BID THE PATIENT IS RECEIVING POTASSIUM 10 MEQ TID; NEW ORDER TO CONTINUE WITH TID AND DISCONTINUE BID. WILL CONTINUE TO MONITOR.
--- NOTE | 2020-04-12 19:40 | NUR ---
SHIFT SUMMARY PT A&Ox3; FORGETFUL AT TIMES. PT RESTING IN BED DURING SHIFT, ENCOURAGED PT TO MOVE AND TURN IN BED Q2 HOURS. PT DENIES PAIN, CHEST PAIN, SOB, NAUSEA AND DIZZINESS. SPO2 >90% ON RA. PT RECEIVED 1UNIT PRBC. HEPARIN GTT. PLANS FOR EGD TOMORROW. VSS. NO OTHER ACUTE CHANGES NOTED DURING SHIFT. REPORT GIVEN TO ONCOMING RN.
--- NOTE | 2020-04-13 01:00 | NUR ---
REC'D CALL FROM LAB WITH CRITICAL PTT RESULT OF >139. NOTIFIED UTILITY CLERK. CALLED KEIRA PHARMACIST WITH ABOVE RESULT. REC'D. ORDER TO HOLD HEPARIN X 1 HOUR, DRAW PTT IN ONE HOUR, AND RE-START HEPARIN AT RATE DETERMINED BY PHARMACY. 0100: HEPARIN DRIP ON HOLD.
--- NOTE | 2020-04-13 02:00 | NUR ---
PTT DRAWN. HEPARIN DRIP RESTARTED AT 10 U/KG/HR PER PHARMACY ORDERS WITH MARIA TERESA JEFFRIES TO VERIFY.
[2020-04-13 04:00] LABS: BASOPHILS ABSOLUTE AUTO 0.01 K/mm3 (0.00-0.23); BASOPHILS PERCENT AUTO 0 % (0-2); EOSINOPHILS ABSOLUTE AUTO 0.05 K/mm3 (0.00-0.68); EOSINOPHILS PERCENT AUTO 1 % (0-6); Hematocrit 20.7 % (37.0-53.0); Hemoglobin 7.3 g/dL (13.5-17.5); IMMATURE GRAN ABSOLUTE AUTO 0.02 K/mm3 (0.00-0.10); IMMATURE GRAN PERCENT AUTO 1 % (0-1); LYMPHOCYTES ABSOLUTE AUTO 1.22 K/mm3 (0.84-5.20); LYMPHOCYTES PERCENT AUTO 30 % (21-46); MONOCYTES ABSOLUTE AUTO 0.34 K/mm3 (0.16-1.47); MONOCYTES PERCENT AUTO 8 % (4-13); Mean Corpuscular HGB 35.4 pg (26.0-34.0); Mean Corpuscular HGB Conc 35.3 g/dL (31.5-36.5); Mean Corpuscular Volume 101 fL (80-100); Mean Platelet Volume 10.1 fL (9.1-12.4); NEUTROPHILS ABSOLUTE AUTO 2.47 K/mm3 (1.96-9.15); NEUTROPHILS PERCENT AUTO 60 % (41-73); Platelet Count 132 K/mm3 (150-400); RDW Coefficient Variation 18.4 % (11.7-14.2); RDW Standard Deviation 68.3 fL (35.1-46.3); Red Blood Cell Count 2.06 M/mm3 (4.30-5.90); White Blood Cell Count 4.11 K/mm3 (4.00-11.30)
[2020-04-13 04:15] LABS: Anion Gap 6 mmol/L (6-16); Blood Urea Nitrogen 12 mg/dL (8-24); Bun/Creatinine Ratio 16.7 (12.0-20.0); CO2, Blood 24 mmol/L (21-32); Calcium, Blood 7.5 mg/dL (8.5-10.1); Chloride, Blood 105 mmol/L (98-108); Creatinine, Blood 0.72 mg/dL (0.60-1.20); Glomerular Filtration Rate >60 (60-); Glucose, Blood 82 mg/dL (70-99); Potassium, Blood 3.2 mmol/L (3.5-5.5); Sodium, Blood 135 mmol/L (136-145)
--- NOTE | 2020-04-13 06:34 | NUR ---
SHIFT SUMMARY: PATIENT ONLY SLEPT A FEW HOURS DURING THE NIGHT. VSS. RHYTHM: ATRIAL FIB., 80-100. PATIENT TAKING SIPS OF WATER. PATIENT IS TO BE NPO AFTER CLEAR LIQUID BREAKFAST FOR EGD. PATIÑO CATH. PATENT DRAINING 400CC CLEAR, TEA-COLORED URINE. POWERGLIDE TO RIGHT UPPER ARM WITH NS TKO; PIV TO LEFT FOREARM WITH HEPARIN INFUSING AT 10U/KG/HR; NEXT PTT AT 0800. DAUGHTER CALLED FOR UPDATE ON PATIENT THIS AM; STATES SHE IS CONCERNED THAT PATIENT WILL NOT BE ABLE TO CARE FOR HIMSELF UPON DISCHARGE, AND WOULD LIKE MUD JACK NOZZLEMAN TO F/U WITH CARE OPTIONS. LABS DRAWN THIS AM. PLAN IS FOR EGD LATER TODAY. AWAITING DAY SHIFT RN FOR HANDOFF.
--- NOTE | 2020-04-13 10:11 | NUR ---
stopped heperin per GI pending EGD at 1400
--- NOTE | 2020-04-13 11:21 | NUR ---
Patient is sitting up in bed and alert. Patient tells me about the blood clot issues and his concerns about it. Patient shares about the of his spouse last December and his struggle to cope. Patient says that he doesn't really have family in the area but he has several friends. Patient continues to talk about personal information, I provide therapeutic listening, grief support and prayer. Patient responds well and shows signs of being encouraged. I will continue to work with patient to help increase his coping skills and resources.
--- NOTE | 2020-04-13 14:47 | NUR ---
pt is being taken to day surgery via bed for egd.
--- NOTE | 2020-04-13 14:50 | NUR ---
PT TRANSPORTED TO [facility]. AGREES WITH PLANNED PROCEDURE.
--- NOTE | 2020-04-13 15:26 | NUR ---
04/13/20 1526 Melba White History, Chart, Medications and Allergies reviewed before start of procedure.MAC CASE WITH DR. MOREIRA. SEE ANETHESIA RECORD FOR CARE
--- NOTE | 2020-04-13 18:33 | NUR ---
pt returned to room awake from day surg, restarted heperin gtt at 1800 per . pt recieved a full liquid diet and tolerating well. no complaints or acute changes this shift. call light in reach.
--- NOTE | 2020-04-13 20:00 | NUR ---
ASSUMED CARE: PT AWAKE IN BED. APPEARS CONFUSED. STATED THAT HE THINKS HE IS IN THE WRONG HOUSE. REDIRECTED PT TO PLACE. DURING SHIFT CHANGE PT WAS PULLING/DISCONNECTING IV LINES AND PATIÑO TUBE. IN AFIB. LUNG SOUNDS CLEAR ON RA. EGD DONE DURING DAYSHIFT-0GI BLEED. TOLERATING FOOD/DRINK FINE. PG TO ACACIA. SOME BLOOD AROUND CATHETER. PIV TO LFA. PT HAS NS AT TKO AND HEPARIN INFUSING. WHEN I ASSESSED IVS I FOUND THE HEPARIN LINE TO BE DISCONNECTED FROM IV AND HANGING NICELY ON IV POLE. ASKED PT IF HE HAD DISCONNECTED AND HE SAID "YES". EXPLAINED THE IMPORTANCE OF KEEPING THE HEPARIN INFUSING. HE SEEMED TO UNDERSTAND. MOVED HEPARIN GTT TO PG AND NS TO LFA. CALLED PHARMACIST TO INFORM THAT HEPARIN HAD BEEN OFF FOR ABOUT AN HR (I'M GUESSING). HEPARIN INFUSING AT 10U/KG OR 13MLS/HR. DOSING WT IS 65KG. WILL CONTINUE TO MONITOR
[2020-04-14 02:51] LABS: BASOPHILS ABSOLUTE AUTO 0.01 K/mm3 (0.00-0.23); BASOPHILS PERCENT AUTO 0 % (0-2); EOSINOPHILS ABSOLUTE AUTO 0.05 K/mm3 (0.00-0.68); EOSINOPHILS PERCENT AUTO 1 % (0-6); Hematocrit 21.1 % (37.0-53.0); Hemoglobin 7.3 g/dL (13.5-17.5); IMMATURE GRAN ABSOLUTE AUTO 0.02 K/mm3 (0.00-0.10); IMMATURE GRAN PERCENT AUTO 1 % (0-1); LYMPHOCYTES ABSOLUTE AUTO 1.19 K/mm3 (0.84-5.20); LYMPHOCYTES PERCENT AUTO 34 % (21-46); MONOCYTES ABSOLUTE AUTO 0.45 K/mm3 (0.16-1.47); MONOCYTES PERCENT AUTO 13 % (4-13); Mean Corpuscular HGB 35.3 pg (26.0-34.0); Mean Corpuscular HGB Conc 34.6 g/dL (31.5-36.5); Mean Corpuscular Volume 102 fL (80-100); Mean Platelet Volume 9.7 fL (9.1-12.4); NEUTROPHILS ABSOLUTE AUTO 1.76 K/mm3 (1.96-9.15); NEUTROPHILS PERCENT AUTO 51 % (41-73); Platelet Count 136 K/mm3 (150-400); RDW Coefficient Variation 18.1 % (11.7-14.2); RDW Standard Deviation 67.2 fL (35.1-46.3); Red Blood Cell Count 2.07 M/mm3 (4.30-5.90); White Blood Cell Count 3.48 K/mm3 (4.00-11.30)
[2020-04-14 03:04] LABS: Anion Gap 8 mmol/L (6-16); Blood Urea Nitrogen 9 mg/dL (8-24); CO2, Blood 23 mmol/L (21-32); Calcium, Blood 7.5 mg/dL (8.5-10.1); Chloride, Blood 107 mmol/L (98-108); Creatinine, Blood 0.69 mg/dL (0.60-1.20); Glomerular Filtration Rate >60 (60-); Glucose, Blood 85 mg/dL (70-99); Potassium, Blood 3.6 mmol/L (3.5-5.5); Sodium, Blood 138 mmol/L (136-145)
--- NOTE | 2020-04-14 05:37 | NUR ---
SHIFT SUMMARY: PT SLEPT MOST OF THE NIGHT. PT STILL MILDLY CONFUSED. BELIEVES HE IS AT HOME. WHEN I REORIENTED HIM TO PLACE AND THAT HE WAS AT [facility] HE SAID "THATS RIGHT. STILL?". HE DID NOT PULL AT LINES ALL NIGHT. REMAINS ON RA. SATTING WELL. IN AFIB, RATE CONTROLLED. PATIÑO REMAINS IN PLACE. PG IN ACACIA AND PIV LFA. HEPARIN GTT INFUSING AT 8UNITS/KG OR 10.4 MLS/HR. DOSING WT IS 65KG. NEXT PTT IS AT 1200. WILL PASS REPORT TO ONCOMING SHIFT
--- NOTE | 2020-04-14 08:31 | NUR ---
pt laying in bed watching tv, he is asking about going home today, explained we need to wait for to see him, some occ confusion noted he started to fiddle with his iv and said it looks like its dried up, asked him to leave it as it is working fine, and infusing fluids, did am care, brought fresh ice water, lungs are clear dim in bases, resp even and unlabored, no cough noted, hrirr, tele in place running afib per monitor, see strip, trace edema noted to rle, 2+ to left, ppp+2, cap refill <3sec, vs stable, afebrile, iv sites are clear and patent, btx4, abd flat soft nontender, voids via adams draining clear mary urine, skin has some wounds, pictures in chart, to sirena castro, two person assist, vero, call light in reach.
[2020-04-14 10:47] LABS: Vancomycin, Trough 21.7 ug/mL (5.0-10.0)
--- NOTE | 2020-04-14 18:32 | NUR ---
pt got up to chair with PT, did well. sat up for a few hrs. no acute changes this shift, removed his adams, he voided small amount. he is medical status at this time. no acute changes this shift. call light in reach.
--- NOTE | 2020-04-15 04:40 | NUR ---
SHIFT SUMMARY: PATIENT ABLE TO STAND BY BED WITH ASSIST TO USE THE URINAL. BED ALARM NEEDED PATIENT IS IMPULSIVE. NO OTHER ISSUES NOTED, CALL LIGHT WITHIN REACH, BED LOW AND LOCKED WITH EXIT ALARM ON
[2020-04-15 05:20] LABS: BASOPHILS ABSOLUTE AUTO 0.01 K/mm3 (0.00-0.23); BASOPHILS PERCENT AUTO 0 % (0-2); EOSINOPHILS ABSOLUTE AUTO 0.03 K/mm3 (0.00-0.68); EOSINOPHILS PERCENT AUTO 1 % (0-6); Hematocrit 22.6 % (37.0-53.0); Hemoglobin 7.7 g/dL (13.5-17.5); IMMATURE GRAN ABSOLUTE AUTO 0.01 K/mm3 (0.00-0.10); IMMATURE GRAN PERCENT AUTO 0 % (0-1); LYMPHOCYTES ABSOLUTE AUTO 1.11 K/mm3 (0.84-5.20); LYMPHOCYTES PERCENT AUTO 33 % (21-46); MONOCYTES ABSOLUTE AUTO 0.48 K/mm3 (0.16-1.47); MONOCYTES PERCENT AUTO 14 % (4-13); Mean Corpuscular HGB 35.2 pg (26.0-34.0); Mean Corpuscular HGB Conc 34.1 g/dL (31.5-36.5); Mean Corpuscular Volume 103 fL (80-100); Mean Platelet Volume 9.6 fL (9.1-12.4); NEUTROPHILS ABSOLUTE AUTO 1.77 K/mm3 (1.96-9.15); NEUTROPHILS PERCENT AUTO 52 % (41-73); Platelet Count 141 K/mm3 (150-400); RDW Coefficient Variation 18.1 % (11.7-14.2); RDW Standard Deviation 68.3 fL (35.1-46.3); Red Blood Cell Count 2.19 M/mm3 (4.30-5.90); White Blood Cell Count 3.41 K/mm3 (4.00-11.30)
[2020-04-15 05:43] LABS: Alanine Aminotransfer (ALT/SGP 14 U/L (12-78); Albumin, Blood 1.6 g/dL (3.4-5.0); Albumin/Globulin Ratio 0.6 (0.8-1.8); Alk Phos 54 U/L (50-136); Anion Gap 7 mmol/L (6-16); Aspartate Aminotrans (AST/SGOT 36 U/L (12-37); Bilirubin, Total 0.3 mg/dL (0.1-1.0); Blood Urea Nitrogen 7 mg/dL (8-24); Bun/Creatinine Ratio 9.6 (12.0-20.0); CO2, Blood 21 mmol/L (21-32); Chloride, Blood 108 mmol/L (98-108); Creatinine, Blood 0.73 mg/dL (0.60-1.20); Globulin, Blood 2.8 g/dL (2.2-4.0); Glomerular Filtration Rate >60 (60-); Glucose, Blood 88 mg/dL (70-99); Potassium, Blood 3.9 mmol/L (3.5-5.5); Sodium, Blood 136 mmol/L (136-145); Total Protein, Blood 4.4 g/dL (6.4-8.2)
--- NOTE | 2020-04-15 08:00 | NUR ---
pt is laying in bed watching tv. a/ox2, cooperative with care, follows commands well, denies any complaints of pain, lungs are clear a bit dim in bases, resp even and unlabored, no cough noted, hrirr, tele in place running afib, will be moving to medical floor today, edema noted to lle, +2, piv to lfa and power glide to kenyetta, sites are clear and patent, bt x4, abd flat soft nontender, voids without diff via urinal, urine is mary, skin has a skin tear to rfa, and rac, maew, general weakness, vero, call light in reach.
--- NOTE | 2020-04-15 11:09 | NUR ---
pt is medical status will be transferring to medical floor, called report to Michelle MOREL. will take him up via wheelchair with wig maker in attendence with all his belongings.
--- NOTE | 2020-04-15 16:59 | NUR ---
SHIFT SUMMARY PCU TRANSFER AT LUNCH TIME. PATIENT DENIES PAIN, NAUSEA, AND SHORTNESS OF BREATH. PATIENT UP IN CHAIR FOR MEALS. PATIENT WORKED WITH PT TODAY, UP SBA W/FWW TO BR. PATIENT RESTING IN BED THE REST OF DAY. PATIENT IMPULSIVE AND CONFUSED AT TIMES. BED ALARM ON. CALL LIGHT IN REACH.
--- NOTE | 2020-04-16 04:11 | NUR ---
SHIFT SUMMARY ASSUMED CARE OF PT AT 1900. PT IS A/OX4, DENIES N/T IN EXTREMITES. HEART SOUNDS IRREGULAR, LUNG SOUNDS CLEAR, DENIES CP/SOB. PT IS CONTINENT, WILL URINATE AT BEDSIDE. PT HAS WOUND UNDER L KNEE, DRESSING CHANGED THIS SHIFT. PT HAS NO NEW COMPLAINTS. NO ACUTE EVENTS DURING THE NIGHT. PT SLEPT T/O THE NIGHT. CALL LIGHT IN REACH, BED IN LOWEST POSTION.
[2020-04-16 05:31] LABS: BASOPHILS ABSOLUTE AUTO 0.02 K/mm3 (0.00-0.23); BASOPHILS PERCENT AUTO 1 % (0-2); EOSINOPHILS ABSOLUTE AUTO 0.04 K/mm3 (0.00-0.68); EOSINOPHILS PERCENT AUTO 1 % (0-6); Hematocrit 24.3 % (37.0-53.0); Hemoglobin 8.2 g/dL (13.5-17.5); IMMATURE GRAN ABSOLUTE AUTO 0.01 K/mm3 (0.00-0.10); IMMATURE GRAN PERCENT AUTO 0 % (0-1); LYMPHOCYTES ABSOLUTE AUTO 1.03 K/mm3 (0.84-5.20); LYMPHOCYTES PERCENT AUTO 26 % (21-46); MONOCYTES PERCENT AUTO 10 % (4-13); Mean Corpuscular HGB 35.7 pg (26.0-34.0); Mean Corpuscular HGB Conc 33.7 g/dL (31.5-36.5); Mean Corpuscular Volume 106 fL (80-100); Mean Platelet Volume 9.5 fL (9.1-12.4); NEUTROPHILS ABSOLUTE AUTO 2.51 K/mm3 (1.96-9.15); NEUTROPHILS PERCENT AUTO 63 % (41-73); Platelet Count 156 K/mm3 (150-400); RDW Coefficient Variation 18.2 % (11.7-14.2); RDW Standard Deviation 70.5 fL (35.1-46.3); White Blood Cell Count 4.01 K/mm3 (4.00-11.30)
[2020-04-16 05:57] LABS: Alanine Aminotransfer (ALT/SGP 19 U/L (12-78); Albumin, Blood 1.7 g/dL (3.4-5.0); Albumin/Globulin Ratio 0.6 (0.8-1.8); Alk Phos 58 U/L (50-136); Anion Gap 5 mmol/L (6-16); Aspartate Aminotrans (AST/SGOT 34 U/L (12-37); Bilirubin, Total 0.3 mg/dL (0.1-1.0); Blood Urea Nitrogen 8 mg/dL (8-24); Bun/Creatinine Ratio 10.4 (12.0-20.0); CO2, Blood 23 mmol/L (21-32); Calcium, Blood 8.2 mg/dL (8.5-10.1); Chloride, Blood 108 mmol/L (98-108); Creatinine, Blood 0.77 mg/dL (0.60-1.20); Globulin, Blood 2.8 g/dL (2.2-4.0); Glomerular Filtration Rate >60 (60-); Glucose, Blood 83 mg/dL (70-99); Potassium, Blood 4.4 mmol/L (3.5-5.5); Sodium, Blood 136 mmol/L (136-145); Total Protein, Blood 4.5 g/dL (6.4-8.2)
--- NOTE | 2020-04-16 15:29 | NUR ---
AMBULATION IN ROOM/GARCIA PHYSICIAN REQUESTED PT BE AMBULATED TO ASSESS ABILITY. THIS RN AMBULATED PT IN GARCIA/ROOM ABOUT 30 FT USING A WALKER AND GAIT BELT. PT DENIED DIZZINESS. PT DANGLED ON EDGE OF BED AND STOOD WITH NO ASSISTANCE FROM THIS RN. PT AMBULATED 10 FT IN ROOM THEN ABOUT 20 FT IN GARCIA. PT FELT FATIGUED IN GARCIA AND REQUESTED TO GO BACK TO ROOM. PT HAD NO LOB DURING AMBULATION AND STAYED STEADY.
--- NOTE | 2020-04-16 16:44 | NUR ---
SHIFT SUMMARY PT IS AO TO PERSON AND PLACE. PT EXHIBITS CONFUSION REGARDING DATE/TIME. PT DENIES PAIN, N/V, SOB. THIS RN AMBULATED 30 FT WITH PT IN ROOM/HALLS PER ORDERS. SEE NOTE. PLAN IS TO SEE IF PT WILL BE STRONG ENOUGH TO DC HOME OR IF SNF IS NEEDED. POWER GLIDE DRESSING AND WOUND DRESSINGS CHANGED THIS AM. PT SLEPT IN BED MOST OF SHIFT. PT IN BED WITH ALARM ON, CALL LIGHT IN REACH, AND BED IN LOW POSITION.
--- NOTE | 2020-04-17 05:37 | NUR ---
SHIFT SUMMARY PT A/O X 2. PT DISORIENTED TO DATE AND INITIALLY UPON QUESTIONING STATED THAT HE WAS AT HOME. PT HAS REMAINED SLIGHTLY CONFUSED THIS EVENING. IMPULSIVE AT TIMES. SETTING OFF BED ALARM SEVERAL TIMES THIS EVENING. PT HAS NO COMPLAINTS OF PAIN. ASKED THIS RN TO REMOVE HIS POWERGLIDE. EDUCATED PT ON CONTINUED NEED FOR MEDICATIONS. DRESSINGS TO RFA AND RLE REMAIN INTACT. VITAL SIGNS STABLE. NO ACUTE CHANGES THIS SHIFT. WILL CONTINUE TO MONITOR AND REPORT TO DAY RN.
--- NOTE | 2020-04-17 15:56 | NUR ---
SHIFT SUMMARY PT IS A/O X 4 BUT IS STILL IMPULSIVE WHEN HE NEEDS TO GET UP TO TOILET. THE BED ALARM IS ON FOR PT SAFETY. HE HAS NO C/O PAIN. DRESSINGS WERE CHANGED ORDERED WITH NO CHANGES TO HIS WOUNDS FROM YESTERDAY. EDEMA REMAINS TO HIS LLE. POWERGLIDE IS PATENT. PLAN IS FOR PT TO DC TO A SNF AND HIS DAUGHTER HAS REQUESTED THAT HE GO TO THE [facility] SHE WORKS AT IN [place], THIS INFO WAS RELAYED TO THE MELTER SUPERVISOR [employer]GEN FURNACE. THE PT IS A STAND BY ASSIST FOR TRANSFERS. HE IS ABLE TO MAKE HIS NEEDS KNOWN BUT DOESNT USUALLY USE HIS CALL LIGHT, INSTEAD HE YELLS OUT INTO THE GARCIA. HES RESTING IN BED NOW WATCHING TV.
--- NOTE | 2020-04-18 01:28 | NUR ---
NO COMPLAINTS VOICED AT SHIFT COMMENCE. IV ANTIBIOTIC INFUSED. CALL LIGHT IN REACH
--- NOTE | 2020-04-18 03:45 | NUR ---
SHIFT SUMMARY HAS BEEN RSTING QUIETLY WITH EFW INTERRUPTIONS. CALL LIGHT IN REACH. AWAKE AT THIS TIME WATCHING TV. NO NOTED ACUTE DISTRESS
[2020-04-18 05:39] LABS: BASOPHILS ABSOLUTE AUTO 0.03 K/mm3 (0.00-0.23); BASOPHILS PERCENT AUTO 1 % (0-2); EOSINOPHILS ABSOLUTE AUTO 0.06 K/mm3 (0.00-0.68); EOSINOPHILS PERCENT AUTO 2 % (0-6); Hemoglobin 7.7 g/dL (13.5-17.5); IMMATURE GRAN ABSOLUTE AUTO 0.02 K/mm3 (0.00-0.10); IMMATURE GRAN PERCENT AUTO 1 % (0-1); LYMPHOCYTES ABSOLUTE AUTO 0.95 K/mm3 (0.84-5.20); LYMPHOCYTES PERCENT AUTO 27 % (21-46); MONOCYTES ABSOLUTE AUTO 0.25 K/mm3 (0.16-1.47); MONOCYTES PERCENT AUTO 7 % (4-13); Mean Corpuscular HGB 35.5 pg (26.0-34.0); Mean Corpuscular HGB Conc 33.5 g/dL (31.5-36.5); Mean Corpuscular Volume 106 fL (80-100); Mean Platelet Volume 9.1 fL (9.1-12.4); NEUTROPHILS ABSOLUTE AUTO 2.27 K/mm3 (1.96-9.15); NEUTROPHILS PERCENT AUTO 63 % (41-73); Platelet Count 165 K/mm3 (150-400); RDW Coefficient Variation 17.6 % (11.7-14.2); RDW Standard Deviation 68.7 fL (35.1-46.3); Red Blood Cell Count 2.17 M/mm3 (4.30-5.90); White Blood Cell Count 3.58 K/mm3 (4.00-11.30)
[2020-04-18 06:02] LABS: Anion Gap 6 mmol/L (6-16); Blood Urea Nitrogen 9 mg/dL (8-24); Bun/Creatinine Ratio 10.5 (12.0-20.0); CO2, Blood 23 mmol/L (21-32); Calcium, Blood 8.2 mg/dL (8.5-10.1); Chloride, Blood 109 mmol/L (98-108); Creatinine, Blood 0.85 mg/dL (0.60-1.20); Glomerular Filtration Rate >60 (60-); Glucose, Blood 85 mg/dL (70-99); Potassium, Blood 4.2 mmol/L (3.5-5.5); Sodium, Blood 138 mmol/L (136-145)
--- NOTE | 2020-04-18 14:44 | NUR ---
Patient is lying in bed and alert. PAtient tells me that he is hoping to go home very soon. He feels that he has improved and misses his home. Patient tells me that he is looking forward to going fishing with his friend on his [place] boat. Patient tells stories of his life and friends. I listen empathically, normalize patient's experience, companionship and a calming presence. Patient responds well and shows signs of an elevated mood.
--- NOTE | 2020-04-18 18:42 | NUR ---
SHIFT SUMMARY ARMEN DENIED PAIN THIS SHIFT. CLEANED AND REDRESSED R ARM AND R LEG DRESSINGS. BILATERAL ELBOWS SWOLLEN, L ELBOW WEEPING, PLACED ABSORBANT PAD UNDERNEATH. PT MOSTLY ORIENTED THIS SHIFT, BUT AT 1830, PT SET OFF BED ALARM AND HAD NO IDEA WHERE HE WAS OR WHY HE WAS HERE. KEEP BED ALARM ON, PT SBA W WALKER. USES URINAL INDEPENDENTLY. TOOK MEDS PRESCRIBED. WCTM
--- NOTE | 2020-04-19 04:47 | NUR ---
SHIFT SUMMARY HAS BEEN RESTING QUIETLY WITH EFW INTERRUPTIONS. AWAKENED FOR BLODD DRAW FROM LINE. NO COMPLAINTS VOICED. CALL LIGHT IN REACH. BED ALARM ON
[2020-04-19 05:38] LABS: BASOPHILS ABSOLUTE AUTO 0.04 K/mm3 (0.00-0.23); BASOPHILS PERCENT AUTO 1 % (0-2); EOSINOPHILS ABSOLUTE AUTO 0.05 K/mm3 (0.00-0.68); EOSINOPHILS PERCENT AUTO 1 % (0-6); Hemoglobin 7.6 g/dL (13.5-17.5); IMMATURE GRAN ABSOLUTE AUTO 0.01 K/mm3 (0.00-0.10); IMMATURE GRAN PERCENT AUTO 0 % (0-1); LYMPHOCYTES ABSOLUTE AUTO 1.09 K/mm3 (0.84-5.20); LYMPHOCYTES PERCENT AUTO 29 % (21-46); MONOCYTES ABSOLUTE AUTO 0.21 K/mm3 (0.16-1.47); MONOCYTES PERCENT AUTO 6 % (4-13); Mean Corpuscular HGB 35.2 pg (26.0-34.0); Mean Corpuscular Volume 107 fL (80-100); Mean Platelet Volume 9.3 fL (9.1-12.4); NEUTROPHILS ABSOLUTE AUTO 2.34 K/mm3 (1.96-9.15); NEUTROPHILS PERCENT AUTO 63 % (41-73); Platelet Count 188 K/mm3 (150-400); RDW Coefficient Variation 17.5 % (11.7-14.2); RDW Standard Deviation 68.8 fL (35.1-46.3); Red Blood Cell Count 2.16 M/mm3 (4.30-5.90); White Blood Cell Count 3.74 K/mm3 (4.00-11.30)
[2020-04-19 06:08] LABS: Anion Gap 8 mmol/L (6-16); Blood Urea Nitrogen 10 mg/dL (8-24); Bun/Creatinine Ratio 10.8 (12.0-20.0); CO2, Blood 22 mmol/L (21-32); Calcium, Blood 7.9 mg/dL (8.5-10.1); Chloride, Blood 108 mmol/L (98-108); Creatinine, Blood 0.93 mg/dL (0.60-1.20); Glomerular Filtration Rate >60 (60-); Glucose, Blood 82 mg/dL (70-99); Potassium, Blood 4.1 mmol/L (3.5-5.5); Sodium, Blood 138 mmol/L (136-145)
--- NOTE | 2020-04-19 17:23 | NUR ---
PATIENT A/OX3, SLOW TO RESPOND AT TIMES. DRESSING CHANGED TO POST L KNEE LACERATION AND PATIENT INSTRUCTED ON HOW TO CHANGE THE DRESSING HIMSELF. SKIN TEAR TO BUE, DRESSINGS C/D/I. DENIES ANY PAIN OR DISCOMFORT. CALM AND COOPERATIVE WITH CARE, CALLS APPROPRIATELY FOR ASSISTANCE. TOLERATING REGULAR DIET.
--- NOTE | 2020-04-20 04:54 | NUR ---
SHIFT SUMMARY ASSUMED CARE OF PT AT 1900. PT IS A/OX4, DENIES N/T IN EXTREMITIES. HEART SOUNDS REGULAR, LUNG SOUNDS CLEAR, DENIES CP/SOB. PT USES THE URINAL AT BEDSIDE INDEPENDENTLY. PT HAS NO NEW COMPLAINS. WOUND DRESSINGS C/D/I. NO ACUTE EVENTS DURING THE NIGHT. PT SLEPT DURING THE NIGHT. CALL LIGHT IN REACH, BED IN LOWEST POSTION, WILL CONTINUE TO MONITOR UNTIL DAYSHIFT NURSE ARRIVES.
[2020-04-20 05:38] LABS: BASOPHILS ABSOLUTE AUTO 0.04 K/mm3 (0.00-0.23); BASOPHILS PERCENT AUTO 1 % (0-2); EOSINOPHILS ABSOLUTE AUTO 0.06 K/mm3 (0.00-0.68); EOSINOPHILS PERCENT AUTO 1 % (0-6); Hematocrit 23.5 % (37.0-53.0); Hemoglobin 7.5 g/dL (13.5-17.5); IMMATURE GRAN ABSOLUTE AUTO 0.02 K/mm3 (0.00-0.10); IMMATURE GRAN PERCENT AUTO 1 % (0-1); LYMPHOCYTES ABSOLUTE AUTO 1.02 K/mm3 (0.84-5.20); LYMPHOCYTES PERCENT AUTO 24 % (21-46); MONOCYTES ABSOLUTE AUTO 0.24 K/mm3 (0.16-1.47); MONOCYTES PERCENT AUTO 6 % (4-13); Mean Corpuscular HGB 34.4 pg (26.0-34.0); Mean Corpuscular HGB Conc 31.9 g/dL (31.5-36.5); Mean Corpuscular Volume 108 fL (80-100); NEUTROPHILS ABSOLUTE AUTO 2.94 K/mm3 (1.96-9.15); NEUTROPHILS PERCENT AUTO 68 % (41-73); Platelet Count 196 K/mm3 (150-400); RDW Coefficient Variation 17.5 % (11.7-14.2); Red Blood Cell Count 2.18 M/mm3 (4.30-5.90); White Blood Cell Count 4.32 K/mm3 (4.00-11.30)
[2020-04-20] MEDS ORDERED: MAGNESIUM OXID500 MG PO (13:47)
[2020-04-20] MEDS ORDERED: FERSU300 PO (13:48)
--- NOTE | 2020-04-20 15:09 | NUR ---
DISCHARGE DISCAHRGE MEDICATIONS AND INSTRUCTIONS EXPLAINED TO PATIENT. PATIENT STATED UNDERSTANDING. PATIENT INSTRUCTED IN DRESSING CHNAGE FOR LEFT LEG AND RIGHT FOREARM. PATIENT ABLE TO SUCCESSFULLY DEMONSTRATE DRESSING CHANGE INDEPENDENTLY. DRESSING CHANGE SUPPLIES SENT WITH PATIENT. WOUND CARE APPOINTMENT SCHEDULED FOR TUESDAY 04/24 AT [facility]. IV AND POWERGILDE REMOVED WITHOUT ISSUE. BELONGINGS WITH PATIENT. PATIENT TRANSFERED TO PRIVATE VEHICLE VIA WHEELCHAIR.
== END 2020-04-20 14:54 | disposition home health service (06) | DRG 872 ==
LOC: ER 10:28 → PCU 13:43 → MEDS 04-15 11:25 → ENPENDDIS 04-20 13:06 → MEDS 04-20 14:54
PROVIDERS: Emergency Medicine; Family Medicine; Hospitalist; Internal Medicine Gastroenterology; Student in an Organized Health Care Education/Training Program; ADMIT Family Medicine
PROC: 30233N1 Transfusion of Nonautologous Red Blood Cells into Peripheral Vein, Percutaneous Approach (ICD-10-PCS; 2020-04-10)
PROC: 0DB68ZX Excision of Stomach, Via Natural or Artificial Opening Endoscopic, Diagnostic (ICD-10-PCS; 2020-04-13)
PROC: 0DB98ZX Excision of Duodenum, Via Natural or Artificial Opening Endoscopic, Diagnostic (ICD-10-PCS; principal; 2020-04-13 14:50)
DX: A41.9 Sepsis, unspecified organism (principal); L03.116 Cellulitis of left lower limb; D62 Acute posthemorrhagic anemia; I48.20 Chronic atrial fibrillation, unspecified; I82.431 Acute embolism and thrombosis of right popliteal vein; B96.89 Other specified bacterial agents as the cause of diseases classified elsewhere; K26.9 Duodenal ulcer, unspecified as acute or chronic, without hemorrhage or perforation; K25.9 Gastric ulcer, unspecified as acute or chronic, without hemorrhage or perforation; I10 Essential (primary) hypertension; K21.9 Gastro-esophageal reflux disease without esophagitis; J44.9 Chronic obstructive pulmonary disease, unspecified; F41.8 Other specified anxiety disorders; F10.20 Alcohol dependence, uncomplicated; G47.33 Obstructive sleep apnea (adult) (pediatric); Z87.891 Personal history of nicotine dependence; Z79.01 Long term (current) use of anticoagulants; Z79.82 Long term (current) use of aspirin; D53.9 Nutritional anemia, unspecified; S81.812A Laceration without foreign body, left lower leg, initial encounter; N40.0 Benign prostatic hyperplasia without lower urinary tract symptoms
CPT/HCPCS: 36415; 36430; 51703; 70450; 71045; 80048; 80053; 80202; 81001; 81003; 82607; 82728; 82746; 82803; 83540; 83550; 83605; 83735; 83880; 84100; 84484; 85014; 85018; 85025; 85045; 85730; 86850; 86900; 86901; 86923; 87040; 87070; 87075; 87077; 87186; 87205; 88305; 88342; 93005; 93010; 93308; 93321; 93970; 94762; 96365; 96366; 96368; 97110; 97112; 97116; 97161; 99285-25; A9270-GY; C9113; G0480; J0690; J0696; J1644; J2001; J2250; J2704; J2916; J3370; J3411; J3475; J3480; J7042; J7050; J7120; P9016; U0002

== ENCOUNTER 2020-05-26 14:20 | Emergency (ER) | payer MEDICARE, OTHER ==
[~2020-05-26] VITALS: Ht 172.7 cm; Wt 59.0 kg
[~2020-05-26 14:20] MED LIST changes: +FERSU300 PO; +MAGNESIUM OXID500 MG PO
[2020-05-26 14:47] LABS: BASOPHILS PERCENT AUTO 0 % (0-2); EOSINOPHILS PERCENT AUTO 0 % (0-6); IMMATURE GRAN ABSOLUTE AUTO 0.03 K/mm3 (0.00-0.10); IMMATURE GRAN PERCENT AUTO 1 % (0-1); LYMPHOCYTES ABSOLUTE AUTO 0.67 K/mm3 (0.84-5.20); LYMPHOCYTES PERCENT AUTO 15 % (21-46); MONOCYTES ABSOLUTE AUTO 0.31 K/mm3 (0.16-1.47); MONOCYTES PERCENT AUTO 7 % (4-13); Mean Corpuscular HGB 35.8 pg (26.0-34.0); Mean Corpuscular HGB Conc 30.8 g/dL (31.5-36.5); Mean Corpuscular Volume 116 fL (80-100); Mean Platelet Volume 12.4 fL (9.1-12.4); NEUTROPHILS ABSOLUTE AUTO 3.45 K/mm3 (1.96-9.15); NEUTROPHILS PERCENT AUTO 77 % (41-73); Platelet Count 61 K/mm3 (150-400); RDW Coefficient Variation 15.9 % (11.7-14.2); RDW Standard Deviation 67.6 fL (35.1-46.3); Red Blood Cell Count 1.37 M/mm3 (4.30-5.90); White Blood Cell Count 4.46 K/mm3 (4.00-11.30)
[2020-05-26 14:50] LABS: Hematocrit 15.9 % (37.0-53.0); Hemoglobin 4.9 g/dL (13.5-17.5)
[2020-05-26 15:01] LABS: International Normalized Ratio 1.85; Prothrombin Time Results 19.1 Sec (9.7-11.5)
[2020-05-26 15:04] LABS: Magnesium, Blood 1.9 mg/dL (1.6-2.4); Phosphorus, Blood 7.4 mg/dL (2.5-4.9)
[2020-05-26 15:16] LABS: U Amphetamine Screen Not Detected; U Barbituate Screen Not Detected; U Benzodiazapine Screen Not Detected; U Buprenorphine Screen Not Detected; U Cannabinoids Screen DETECTED; U Cocaine Screen Not Detected; U Methadone Screen Not Detected; U Methamphetamine Screen Not Detected; U Opiates Screen Not Detected; U Oxycodone Screen Not Detected; U Phencyclidine Screen Not Detected; U Propoxyphene Screen Not Detected
[2020-05-26 15:25] LABS: Ethanol (Alcohol), Blood, Med <3 mg/dL
[2020-05-26 15:33] LABS: Alanine Aminotransfer (ALT/SGP 348 U/L (12-78); Albumin, Blood 1.7 g/dL (3.4-5.0); Albumin/Globulin Ratio 0.9 (0.8-1.8); Alk Phos 53 U/L (50-136); Anion Gap 27 mmol/L (6-16); Aspartate Aminotrans (AST/SGOT 2156 U/L (12-37); Bilirubin, Total 1.5 mg/dL (0.1-1.0); Blood Urea Nitrogen 31 mg/dL (8-24); Bun/Creatinine Ratio 22.6 (12.0-20.0); CO2, Blood 10 mmol/L (21-32); Calcium, Blood 7.4 mg/dL (8.5-10.1); Chloride, Blood 105 mmol/L (98-108); Creatinine, Blood 1.37 mg/dL (0.60-1.20); Globulin, Blood 1.8 g/dL (2.2-4.0); Glomerular Filtration Rate 55 (60-); Glucose, Blood 141 mg/dL (70-99); Potassium, Blood 3.8 mmol/L (3.5-5.5); Sodium, Blood 142 mmol/L (136-145); Total Protein, Blood 3.5 g/dL (6.4-8.2)
[2020-05-26] MEDS ORDERED: DOXAZOSIN MESYLA2 MG PO (16:44)
[2020-05-26] MEDS ORDERED: LISI20 PO (16:45)
[2020-05-26] MEDS ORDERED: INCRUSE ELLIPTA 62.5 INH (16:46)
[2020-05-26] MEDS ORDERED: B-1100 M1 PO (16:46)
[2020-05-26 16:47] LABS: PCO2 Arterial 19.7 mmHg (35-45); PO2 Arterial 109 mmHg (80-100); pH Blood Arterial 7.24 (7.35-7.45)
== END 2020-05-26 17:55 | disposition short-term general hospital (02) ==
LOC: ER 14:20
PROVIDERS: Emergency Medicine
DX: T68.XXXA Hypothermia, initial encounter (principal); I95.9 Hypotension, unspecified; E16.2 Hypoglycemia, unspecified; D69.6 Thrombocytopenia, unspecified; E87.2 Acidosis; K70.10 Alcoholic hepatitis without ascites; J44.9 Chronic obstructive pulmonary disease, unspecified; K21.9 Gastro-esophageal reflux disease without esophagitis; F41.9 Anxiety disorder, unspecified; I11.0 Hypertensive heart disease with heart failure; I50.9 Heart failure, unspecified; F12.10 Cannabis abuse, uncomplicated; F17.210 Nicotine dependence, cigarettes, uncomplicated; Z20.828 Contact with and (suspected) exposure to other viral communicable diseases; Z79.82 Long term (current) use of aspirin; Z79.899 Other long term (current) drug therapy
CPT/HCPCS: 36415; 36430; 36600; 51702; 80053; 82803; 82947; 83605; 83735; 84100; 85025; 85610; 85730; 86850; 86900; 86901; 86920; 92953; 93005; 93010; 96365-59; 96375-59; 99285-25; C9113; G0480; J3411; J3475; J7030; J7042; P9016; P9059; U0003

== ENCOUNTER 2020-07-26 19:35 | Emergency (ER) | payer MEDICARE, OTHER ==
[~2020-07-26] VITALS: Ht 172.7 cm; Wt 70.3 kg
[~2020-07-26 19:35] MED LIST changes: +DOXAZOSIN MESYLA2 MG PO; +INCRUSE ELLIPTA 62.5 INH
[2020-07-26 19:57] LABS: Source, Urine Voided
[2020-07-26 20:01] LABS: Bilirubin, Urine Neg (Neg); Blood, Urine 1+ (Neg); Glucose Qualitative, Urine Neg (Neg); Ketones, Urine 1+ (Neg); Leukocyte Esterase, Urine Neg (Neg); Nitrite, Urine Neg (Neg); Protein, Urine Neg (Neg); Urobilinogen, Urine NORM (Normal)
[2020-07-26 20:16] LABS: Appearance, Urine Clear (Clear); Color, Urine Pale Yellow (P-Yellow)
[2020-07-26 20:21] LABS: BASOPHILS ABSOLUTE AUTO 0.01 K/mm3 (0.00-0.23); BASOPHILS PERCENT AUTO 0 % (0-2); EOSINOPHILS ABSOLUTE AUTO 0.05 K/mm3 (0.00-0.68); EOSINOPHILS PERCENT AUTO 2 % (0-6); Hematocrit 36.8 % (37.0-53.0); Hemoglobin 12.2 g/dL (13.5-17.5); IMMATURE GRAN ABSOLUTE AUTO 0.01 K/mm3 (0.00-0.10); IMMATURE GRAN PERCENT AUTO 0 % (0-1); LYMPHOCYTES ABSOLUTE AUTO 1.41 K/mm3 (0.84-5.20); LYMPHOCYTES PERCENT AUTO 49 % (21-46); MONOCYTES ABSOLUTE AUTO 0.22 K/mm3 (0.16-1.47); MONOCYTES PERCENT AUTO 8 % (4-13); Mean Corpuscular HGB 31.3 pg (26.0-34.0); Mean Corpuscular HGB Conc 33.2 g/dL (31.5-36.5); Mean Corpuscular Volume 94 fL (80-100); Mean Platelet Volume 9.6 fL (9.1-12.4); NEUTROPHILS ABSOLUTE AUTO 1.19 K/mm3 (1.96-9.15); NEUTROPHILS PERCENT AUTO 41 % (41-73); Platelet Count 54 K/mm3 (150-400); RDW Standard Deviation 51.8 fL (35.1-46.3); White Blood Cell Count 2.89 K/mm3 (4.00-11.30)
[2020-07-26 20:21] LABS: Bacteria Not Seen /hpf; Red Blood Cells, Urine 0-2 /hpf (0-2); Squamous Epithelial Cells Not Seen /hpf (Few); White Blood Cells, Urine 0-2 /hpf (0-5)
[2020-07-26 20:37] LABS: Alanine Aminotransfer (ALT/SGP 23 U/L (12-78); Albumin, Blood 3.4 g/dL (3.4-5.0); Albumin/Globulin Ratio 1.1 (0.8-1.8); Alk Phos 63 U/L (50-136); Anion Gap 13 mmol/L (6-16); Aspartate Aminotrans (AST/SGOT 47 U/L (12-37); Bilirubin, Total 0.7 mg/dL (0.1-1.0); Blood Urea Nitrogen 8 mg/dL (8-24); Bun/Creatinine Ratio 12.7 (12.0-20.0); CO2, Blood 24 mmol/L (21-32); Calcium, Blood 8.9 mg/dL (8.5-10.1); Chloride, Blood 103 mmol/L (98-108); Creatinine, Blood 0.63 mg/dL (0.60-1.20); Ethanol (Alcohol), Blood, Med 258 mg/dL; Globulin, Blood 3.1 g/dL (2.2-4.0); Glomerular Filtration Rate >60 (60-); Glucose, Blood 70 mg/dL (70-99); Magnesium, Blood 1.6 mg/dL (1.6-2.4); Potassium, Blood 3.6 mmol/L (3.5-5.5); Sodium, Blood 140 mmol/L (136-145); Total Protein, Blood 6.5 g/dL (6.4-8.2)
== END 2020-07-27 00:08 | disposition home or self-care (01) ==
LOC: ER 19:35
PROVIDERS: Emergency Medicine
DX: M79.672 Pain in left foot (principal); M79.671 Pain in right foot; F10.129 Alcohol abuse with intoxication, unspecified; I10 Essential (primary) hypertension; K21.9 Gastro-esophageal reflux disease without esophagitis; J44.9 Chronic obstructive pulmonary disease, unspecified; F41.9 Anxiety disorder, unspecified; I48.91 Unspecified atrial fibrillation; I50.9 Heart failure, unspecified; F17.210 Nicotine dependence, cigarettes, uncomplicated; Z86.718 Personal history of other venous thrombosis and embolism; Z79.82 Long term (current) use of aspirin; Z79.01 Long term (current) use of anticoagulants; Z79.899 Other long term (current) drug therapy
CPT/HCPCS: 36415; 80053; 81001; 83735; 85025; 99283; G0480